=== PATIENT | male | born 1980 | race Caucasian/White ===

== ENCOUNTER 2017-12-08 22:23 | Emergency (ER) | payer SELFPAY ==
[2017-12-08] MEDS ORDERED: Lidocaine 2% Viscous Solution 15 ML Cup PO ONE (22:50)
--- NOTE | 2017-12-08 22:55 | EDM.PDOC ---
ED HPI GENERAL MEDICAL PROBLEM - General Chief Complaint: ENT Problem Stated Complaint: PT HAS OBJECT STUCK IN THROAT Time Seen by Provider: 12/08/17 22:43 - History of Present Illness INITIAL COMMENTS - FREE TEXT/NARRATIVE: HISTORY AND PHYSICAL: History of present illness: The patient is a 37-year-old male who presents with foreign body sensation in his throat that started after he was doing laundry and carrying items from work and something went into his mouth. Patient is unsure of what the object could be but he says that he had a be something that was in his pockets from work. He said he was going down to do laundry and carrying the laundry but he took items from his pockets and place them in his mouth to hold them and then suddenly felt like something went down his throat. He initially gathered but did not have persistent gagging and since that time he has felt like there is an object in the right side of his throat at the sternal notch. He does not feel short of breath and he is not having any voice changes. He insists that he is unsure of what the object could be but he normally carries metallic objects coins gu[employer]imble CRMr pick in his pockets. He doesn't have any chest pain or shortness of breath but he is stating that when he tries to swallow anything it comes back up. He has not had any coughing or gagging since that initial episode. He says he feels like it is trying to move in his throat which is very bothersome and discomforting. The patient has been having dialogue with both nursing staff and myself with a very annoyed and abrupt manner his arrival and is very impatient with our conversations and with the need to get information. His family apologizes to me for his "crankiness". Review of systems: As per history of present illness and below otherwise all systems reviewed and negative. Past medical history: As per history of present illness and as reviewed below otherwise noncontributory. Surgical history: As per history of present illness and as reviewed below otherwise noncontributory. Social history: No reported history of drug or alcohol abuse. Family history: As per history of present illness and as reviewed below otherwise noncontributory. Physical exam: General: Well-developed well-nourished man who is nontoxic and who is speaking clearly in the ED without hoarse voice muffled voice or breathlessness. Vital signs are noted by me. HEENT: Atraumatic, normocephalic, pupils reactive, negative for conjunctival pallor or scleral icterus, mucous membranes moist, throat clear, neck supple, nontender, trachea midline. There is no posterior oropharyngeal trauma or swelling and the patient is able to give me a very wide open mouth exam and I do not see any foreign objects in the posterior oropharynx or in the tonsillar crypts/arytenoid areas that I am able to visualize. Lungs: Clear to auscultation, breath sounds equal bilaterally, chest nontender. There is no wheezing stridor or work of breathing Heart: S1S2, regular, rate and rhythm no overt murmurs Abdomen: Soft, nondistended, nontender. Negative for masses or hepatosplenomegaly. Negative for costovertebral tenderness. Pelvis: Deferred Genitourinary: Deferred. Rectal: Deferred. Extremities: Atraumatic, negative for cords or calf pain. Neurovascular unremarkable. Neuro: Awake, alert, oriented. Cranial nerves II through XII unremarkable. Cerebellum unremarkable. Motor and sensory unremarkable throughout. Exam nonfocal. Diagnostics: Soft tissue neck x-ray Therapeutics: Viscous lidocaine 2325: I discussed with the patient that the x-ray does not reveal any radial head foreign object and he tells me that after the viscous lidocaine he is not having any pain but he still points to the insertion of the sternocleidomastoid on the right as where he is feeling the foreign body sensation. He was able to swallow the lidocaine and has not had any vomiting or choking with that and he is still continuing to not have any shortness of breath and speaking clearly. I discussed with them the possibility of doing a CT scan of the soft tissue neck to further identify if there is truly an object retained or if he is only having irritation from ingesting a small object and to identify its location to see if it would be an ENT or a GI problem. He initially said that he will go ahead and do it but I described to him that he would need to have an IV and basic labs performed before he can do that scan. We also discussed the possibility of going to see Dr. Mason in the clinic tomorrow where she can do a quick scope of the upper airway and he is very frustrated with my dialogue with him and now says he would like to refuse everything and does go to the clinic tomorrow. I tried to explain to him that I cannot call a surgeon any surgical team in to remove a foreign object when I do not know if there is an object present or if there is just irritation and I do not know its location. I Said the only way that we will be able to go and remove it is if we can localize the object and identify it. He continues to be cranky and upset with my conversation and he has been this way with nursing at triage as well as throughout his care here. I will give him the appropriate referral information and as he was able to swallow the viscous lidocaine and he has no airway compromise I will discharge him home. Impression: Foreign body sensation to throat Definitive disposition and diagnosis as appropriate pending reevaluation and review of above. throat Pain Score (Numeric/FACES): 6 - Related Data Allergies Allergy/AdvReac Type Severity Reaction Status Date / Time Iodine and Iodide Containing Allergy Rash Verified 12/08/17 22:42 Produc fish Allergy Swelling Uncoded 12/08/17 22:42 Home Meds: Home Meds . [No Known Home Meds] 05/25/15 [History] Past Medical History HEENT History: Reports: None Cardiovascular History: Reports: High Cholesterol, Hypertension Other Cardiovascular History: reports high blood pressure and cholesterol, has been on meds but hasnt followed up with doctor, not taking meds at present Respiratory History: Reports: None Gastrointestinal History: Reports: GERD Genitourinary History: Reports: Renal Calculus Musculoskeletal History: Reports: None Neurological History: Reports: Seizure Other Neuro History: 6x in a year Psychiatric History: Reports: None Endocrine/Metabolic History: Reports: None Hematologic History: Reports: None Immunologic History: Reports: None Oncologic (Cancer) History: Reports: None Dermatologic History: Reports: None - Infectious Disease History Infectious Disease History: Reports: None - Past Surgical History Head Surgeries/Procedures: Reports: None Musculoskeletal Surgical History: Reports: Arthroscopic Knee Social & Family History - Family History Family Medical History: Noncontributory - Tobacco Use Smoking Status *Q: Never Smoker Years of Tobacco use: 27 Packs/Tins Daily: 1 - Caffeine Use Caffeine Use: Reports: Coffee, Soda - Recreational Drug Use Recreational Drug Use: No ED ROS GENERAL - Review of Systems Review Of Systems: ROS reveals no pertinent complaints other than HPI. ED EXAM, GENERAL - Physical Exam Exam: See Below (See dictation) Course - Vital Signs Last Recorded V/S: Last Vital Signs Temp 36.8 C 12/08/17 22:42 Pulse 83 12/08/17 22:42 Resp 18 12/08/17 22:42 BP 120/75 12/08/17 22:42 Pulse Ox 98 12/08/17 22:42 - Orders/Labs/Meds Orders: Active Orders 24 hr Category Date Time Status Neck Soft Tissue [CR] Stat Exams 12/08/17 22:50 Taken Meds: Medications Discontinued Medications Generic Name Dose Route Start Last Admin Trade Name Grant PRN Reason Stop Dose Admin Lidocaine HCl 15 ml 12/08/17 22:50 12/08/17 23:07 Xylocaine 2% Viscous PO 12/08/17 22:51 15 ml ONETIME ONE Administration Departure - Departure Time of Disposition: 23:35 Disposition: Home, Self-Care 01 Condition: Good Clinical Impression: Foreign body sensation in throat - Discharge Information Referrals: PCP,None [Primary Care Provider] - Forms: ED Department Discharge Additional Instructions: The following information is given to patients seen in the emergency department who are being discharged to home. This information is to outline your options for follow-up care. We provide all patients seen in our emergency department with a follow-up referral. The need for follow-up, as well as the timing and circumstances, are variable depending upon the specifics of your emergency department visit. If you don't have a primary care physician on staff, we will provide you with a referral. We always advise you to contact your personal physician following an emergency department visit to inform them of the circumstance of the visit and for follow-up with them and/or the need for any referrals to a consulting specialist. The emergency department will also refer you to a specialist when appropriate. This referral assures that you have the opportunity for followup care with a specialist. All of these measure are taken in an effort to provide you with optimal care, which includes your followup. Under all circumstances we always encourage you to contact your private physician who remains a resource for coordinating your care. When calling for followup care, please make the office aware that this follow-up is from your recent emergency room visit. If for any reason you are refused follow-up, please contact the [facility] emergency department at and ask to speak to the emergency department charge nurse. [facility] Primary care- Internal Medicine and Family [address] [place] [address] [facility] - ENT--Dr Mason [address] [place] [address] Please contact our clinic at ADM tomorrow morning to get a scheduled appointment with our ENT specialist or with one of our providers. Please return to ER as needed and as discussed. Please drink fluids and eat a soft diet until you're followed up. - My Orders Last 24 Hours: My Active Orders 12/08/17 22:50 Neck Soft Tissue [CR] Stat - Assessment/Plan Last 24 Hours: My Active Orders 12/08/17 22:50 Neck Soft Tissue [CR] Stat
[2017-12-08 23:43] VITALS: BP 110/68
--- NOTE | 2017-12-09 11:27 | CR ---
EXAM DATE: 12/08/17 PATIENT'S AGE: 37 Patient: MORIS CHAPPELL Facility: [place], [place] Site . Site : 1980 Study: XRay ST Neck [id number]/9/2018 11:03:20 PM Ordering Physician: Doctor Eastman Final Report: INDICATION: Pain. Hard object at the base of the throat. COMPARISON: None. FINDINGS/IMPRESSION: Neck soft tissues, 2 views. The included airway is within normal limits. No radiopaque foreign body is visualized. Prevertebral soft tissues appear normal. Included bones are unremarkable aside from minor cervical spine degenerative changes. Dictated by David Acuna MD @ 12/08/2017 11:17:33 PM Dictated by: David Acuna MD @ 12/08/2017 23:18:30 (Electronic Signature) Report Signed by Proxy. CHELSEA
== END 2017-12-08 23:44 | disposition home or self-care (01) ==
LOC: MW.ED 22:23
DX: R09.89 Other specified symptoms and signs involving the circulatory and respiratory systems (principal); I10 Essential (primary) hypertension; Z91.013 Allergy to seafood
CPT/HCPCS: 70360; 99283; A9270

== ENCOUNTER 2021-09-11 17:54 | Emergency (ER) | payer BC ==
--- NOTE | 2021-09-11 18:22 | EDM.PDOC ---
ED HPI GENERAL MEDICAL PROBLEM - General Chief Complaint: General Stated Complaint: WEAKNESS, FATIGUE, BODY ACHES Time Seen by Provider: 09/11/21 17:59 Source of Information: Reports: Patient History Limitations: Reports: No Limitations - History of Present Illness INITIAL COMMENTS - FREE TEXT/NARRATIVE: HISTORY AND PHYSICAL: History of present illness: Patient is a 41-year-old male who presents to the emergency room with complaints of generalized weakness, fatigue and body aches over the past few days. He states he did have a coworker who tested positive for COVID 19, was exposed. He is concerned he may have the virus as well. Patient denies any fever, chills, headache, change in vision, syncope or near syncope. Denies any chest pain, back pain, shortness of breath or cough. Denies any GI or symptoms. No recent travel or sick contacts. Review of systems: As per history of present illness and below otherwise all systems reviewed and negative. Past medical history: As per history of present illness and as reviewed below otherwise noncontributory. Surgical history: As per history of present illness and as reviewed below otherwise noncontributory. Social history: See social history for further information Family history: As per history of present illness and as reviewed below otherwise noncontributory. Physical exam: General: Well developed and well nourished. Alert and orientated x 3. Nontoxic in appearance and in no acute distress. Vital signs are stable and have been reviewed by me. Nursing notes were reviewed. HEENT: Atraumatic, normocephalic, pupils equal and reactive bilaterally, negative for conjunctival pallor or scleral icterus, mucous membranes moist, TMs normal bilaterally, throat clear, neck supple, nontender, trachea midline. No drooling or trismus noted. No meningeal signs. No hot potato voice noted. Lungs: Clear to auscultation bilaterally. No wheezes, rales, or rhonchi. Chest nontender. Normal work of breathing, no accessory muscles used. Heart: S1S2, regular rate and rhythm without overt murmur, gallops, or rubs. No JVD. No peripheral edema Abdomen: Soft, nondistended, nontender. Normoactive bowel sounds. Negative for masses or costovertebral tenderness. Skin: Intact, warm, dry. No lesions or rashes noted. Hematologic: No petechiae or purpra. Mucosa appropriate color and normal nail bed color and refill. Extremities: Atraumatic, moves all extremities per self without difficulty or deficits, negative for cords or calf pain. Neurovascular unremarkable. Neuro: Awake, alert, oriented. Cranial nerves II through XII unremarkable. Cerebellum unremarkable. Motor and sensory unremarkable throughout. Exam nonfocal. Psychiatric: Mood and affect are appropriate. Normal thought process. Answering questions appropriately. Please note that the patient was seen and evaluated during the 2019 SARS-CoV-2 novel coronavirus pandemic period. Community viral transmission is ongoing at time of this encounter and the emergency department is operating under pandemic response procedures. Medical Decision Making: Patient is a 41-year-old male who presents to the emergency room with concerns he has COVID-19. We did discuss doing further diagnostics, he declines. He states he was exposed at work and would like to be tested here. Physical exam is unremarkable. Vital signs are stable. Negative COVID-19 testing. I have talked with the patient about today's findings, in addition to providing specific details for plan of care. Reassessment at the time of disposition demonstrates that the patient is in no acute distress. The patient is stable for discharge, counseling was provided and we discussed in great detail signs and symptoms that would prompt them to return to the Emergency Department. Medication, follow up and supportive care measures were reviewed and discussed. Voices understanding and is agreeable to plan of care. Denies any further questions or concerns at this time. Diagnostics: COVID-19 Therapeutics: None Prescription: None Impression: Viral illness Plan: 1. You were evaluated today on an emergent basis. Your COVID-19 screening is negative. If symptoms persist you can follow-up at the walk-in clinic to be retested in a few days. While you are feeling ill I would avoid social settings and quarantine as able. 2. You can alternate Tylenol and ibuprofen as needed for pain and fever management. 3. We encourage you to follow up with your primary care provider and/or recommended specialist in the next few days for re-evaluation and further care/management. 4. If your symptoms should worsen, new symptoms develop or any of the signs and symptoms we discussed should arise please return to the emergency room or call 911 (if needed). Definitive disposition and diagnosis as appropriate pending reevaluation and review of above. body aches Pain Score (Numeric/FACES): 4 - Related Data Allergies Allergy/AdvReac Type Severity Reaction Status Date / Time Iodine and Iodide Containing Allergy Rash Verified 09/11/21 18:02 Produc fish Allergy Swelling Uncoded 09/11/21 18:02 Home Meds: Home Meds . [No Known Home Meds] 05/25/15 [History] Past Medical History HEENT History: Reports: None Cardiovascular History: Reports: High Cholesterol, Hypertension Other Cardiovascular History: reports high blood pressure and cholesterol, has been on meds but hasnt followed up with doctor, not taking meds at present Respiratory History: Reports: None Gastrointestinal History: Reports: GERD Genitourinary History: Reports: Renal Calculus Musculoskeletal History: Reports: None Neurological History: Reports: Seizure Other Neuro History: 6x in a year Psychiatric History: Reports: None Endocrine/Metabolic History: Reports: None Hematologic History: Reports: None Immunologic History: Reports: None Oncologic (Cancer) History: Reports: None Dermatologic History: Reports: None - Infectious Disease History Infectious Disease History: Reports: Chicken Pox - Past Surgical History Head Surgeries/Procedures: Reports: None GI Surgical History: Reports: Other (See Below) Other GI Surgeries/Procedures: pilonidal cyst removal Musculoskeletal Surgical History: Reports: Arthroscopic Knee Social & Family History - Family History Family Medical History: No Pertinent Family History - Tobacco Use Tobacco Use Status *Q: Current Every Day Tobacco User Years of Tobacco use: 16 Packs/Tins Daily: 0.7 - Caffeine Use Caffeine Use: Reports: Soda - Recreational Drug Use Recreational Drug Use: No ED ROS GENERAL - Review of Systems Review Of Systems: Comprehensive ROS is negative, except as noted in HPI. ED EXAM, GENERAL - Physical Exam Exam: See Below (See dictation) Course - Vital Signs Last Recorded V/S: Last Vital Signs Temp 97.9 F 09/11/21 18:03 Pulse 76 09/11/21 18:33 Resp 16 09/11/21 18:33 BP 123/84 09/11/21 18:33 Pulse Ox 96 09/11/21 18:33 - Orders/Labs/Meds Labs: Laboratory Tests 09/11/21 Range/Units 18:18 SARS-CoV-2 RNA (PORTER) NEGATIVE (NEGATIVE) Departure - Departure Time of Disposition: 19:31 Disposition: Home, Self-Care 01 Clinical Impression: Viral illness - Discharge Information Instructions: Viral Illness, Adult Referrals: PCP,None [Primary Care Provider] - Forms: ED Department Discharge Additional Instructions: The following information is given to patients seen in the emergency department who are being discharged to home. This information is to outline your options for follow-up care. We provide all patients seen in our emergency department with a follow-up referral. The need for follow-up, as well as the timing and circumstances, are variable depending upon the specifics of your emergency department visit. If you don't have a primary care physician on staff, we will provide you with a referral. We always advise you to contact your personal physician following an emergency department visit to inform them of the circumstance of the visit and for follow-up with them and/or the need for any referrals to a consulting specialist. The emergency department will also refer you to a specialist when appropriate. This referral assures that you have the opportunity for follow-up care with a specialist. All of these measure are taken in an effort to provide you with optimal care, which includes your follow-up. Under all circumstances we always encourage you to contact your private physician who remains a resource for coordinating your care. When calling for follow-up care, please make the office aware that this follow-up is from your recent emergency room visit. If for any reason you are refused follow-up, please contact the [facility] Emergency Department at and asked to speak to the emergency department charge nurse. [facility] Primary Care [address] [place] [address] [place] [address] Thank you for choosing the [facility] emergency department in [place] for your medical needs today. It was a pleasure caring for you. Today you were seen in the emergency department for COVID 19 testing 1. You were evaluated today on an emergent basis. Your COVID-19 screening is negative. If symptoms persist you can follow-up at the walk-in clinic to be ret ested in a few days. While you are feeling ill I would avoid social settings and quarantine as able. 2. You can alternate Tylenol and ibuprofen as needed for pain and fever management. 3. We encourage you to follow up with your primary care provider and/or recommended specialist in the next few days for re-evaluation and further care/management. 4. If your symptoms should worsen, new symptoms develop or any of the signs and symptoms we discussed should arise please return to the emergency room or call 911 (if needed). Sepsis Event Note (ED) - Evaluation Sepsis Screening Result: No Definite Risk - Focused Exam Vital Signs: Vital Signs Temp Pulse Resp BP Pulse Ox 09/11/21 18:33 76 16 123/84 96 09/11/21 18:03 97.9 F 85 16 120/88 97
[2021-09-12 02:13] VITALS: BP 141/68; PULSE 87
== END 2021-09-12 00:30 | disposition home or self-care (01) ==
LOC: MW.ED 17:54
DX: B34.9 Viral infection, unspecified (principal); Z91.013 Allergy to seafood; Z88.8 Allergy status to other drugs, medicaments and biological substances; Z72.0 Tobacco use; Z20.822 Contact with and (suspected) exposure to COVID-19
CPT/HCPCS: 87804; 99284; U0002

== ENCOUNTER 2022-05-11 02:59 | Emergency (ER) | payer BC ==
[2022-05-11] MEDS ORDERED: Tetracaine HCl/PF 0.5% 4 ML Bottle EYELF STA (03:24)
[2022-05-11] MEDS ORDERED: Ciprofloxacin 0.3% Ophth Soln 2.5 ML Bottle EYERT STA (03:37)
[2022-05-11] MEDS ORDERED: Ciprofloxacin 0.3% Ophth Soln 2.5 ML Bottle EYEBOTH STA (03:37)
[2022-05-11 03:57] VITALS: BP 112/73; PULSE 84
== END 2022-05-11 03:57 | disposition home or self-care (01) ==
LOC: MW.ED 02:59
DX: S05.02XA Injury of conjunctiva and corneal abrasion without foreign body, left eye, initial encounter (principal); H10.9 Unspecified conjunctivitis; I10 Essential (primary) hypertension; Z91.013 Allergy to seafood; Z91.041 Radiographic dye allergy status; X58.XXXA Exposure to other specified factors, initial encounter
CPT/HCPCS: 99283

== ENCOUNTER 2024-01-04 16:18 | Emergency (ER) | payer SELFPAY ==
[2024-01-04] MEDS: Acetaminophen 500 MG Tab PO ONE (18:00)
[2024-01-04] MEDS: Ibuprofen 800 MG Tab PO ONE (18:01)
[2024-01-04] MEDS: Lidocaine 5% Oint 35.44 GM Tube TOP ONE (18:09)
[2024-01-04 18:14] VITALS: BP 121/90; PULSE 81
== END 2024-01-04 18:14 ==
LOC: MW.ED 16:18
DX: B02.9 Zoster without complications (principal); I10 Essential (primary) hypertension; F17.210 Nicotine dependence, cigarettes, uncomplicated; Z91.013 Allergy to seafood; Z91.041 Radiographic dye allergy status
CPT/HCPCS: 99283; A9270